=== PATIENT | male | born 1975 | race Hispanic/Latino ===

== ENCOUNTER 2024-09-20 17:28 | Emergency (ER) | payer BC ==
[~2024-09-20] VITALS: Ht 182.9 cm; Wt 112.0 kg
--- NOTE | 2024-09-20 18:12 | HMCIMG ---
LEFT FOOT RADIOGRAPHS - 2 VIEWS INDICATION: [place] injury COMPARISON: None FINDINGS: AP, lateral views. No fracture or subluxation identified. Midfoot alignment is well maintained. No radiopaque foreign body noted. IMPRESSION: No evidence for fracture or foreign body.
[2024-09-20 18:17] VITALS: BP 145/85; PULSE 80; RESP 16; TEMP 98.3; O2SAT 98
[2024-09-20] MEDS ORDERED: CEPH500B PO ×2 (18:32)
--- NOTE | 2024-09-20 18:33 | ERN ---
General Chief Complaint: FOOT INJURY/PAIN Stated Complaint: FISHING HOOK STUCK IN BONE LT FOOT Time Seen by MD: 17:32 Source: patient, family History of Present Illness Initial Comments PATIENT IS A 48-YEAR-OLD MALE COMING IN TO BE EVALUATED FOR LEFT FOOT PATIENT WAS INJURY. PER PATIENT HE WAS FISHING STEPPED ON A HOOK IN HIS NOW STUCK IN HIS LEFT FOOT. Allergies: Coded Allergies: No Known Drug Allergies (Unverified Allergy, Intermediate, 09/20/24) Home Meds Active Scripts Cephalexin Monohydrate (Keflex) 500 Mg Cap, 1 CAP PO BID for 10 Days, #20 CAP 0 Refills Prov:ERICK ACOSTA MD 09/20/24 Cephalexin Monohydrate (Keflex) 500 Mg Cap, 1 CAP PO TID for 10 Days, #30 CAP 0 Refills Prov:ERICK ACOSTA MD 09/20/24 Past Medical History Past Medical History: No Pertinent History Past Surgical History: Other Surgical History Other: ANKLE SX ROS Dictation CONSTITUTIONAL: NO CHILLS, NO FEVER, NO WEAKNESS, NO DIAPHORESIS, NO MALAISE. HEAD/FACE: NO SIGNS OF TRAUMA. EENT: NO EYE PAIN, NO BLURRED VISION, NO TEARING, NO DOUBLE VISION, NO EAR PAIN, NO EAR DISCHARGE, NO NOSE PAIN, NO NASAL CONGESTION, NO THROAT PAIN, NO THROAT SWELLING, NO MOUTH PAIN. RESPIRATORY: NO COUGH, NO ORTHOPNEA, NO SOB, NO STRIDOR, NO WHEEZING. CARDIOVASCULAR: NO CHEST PAIN, NO EDEMA, NO PALPITATIONS, NO SYNCOPE. GASTROINTESTINAL/ABDOMINAL: NO ABDOMINAL PAIN, NO CONSTIPATION, NO DIARRHEA, NO NAUSEA, NO VOMITING. GENITOURINARY: NO ABNORMAL DISCHARGE, NO DYSURIA, NO FREQUENT URINATION, NO HEMATURIA. NO COMPLAINTS OF PAIN IN THE GENITALS. MUSCULOSKELETAL: NO BACK PAIN, NO GOUT, NO JOINT PAIN, NO JOINT SWELLING, NO MUSCLE PAIN, NO MUSCLE STIFFNESS, NO NECK PAIN. INTEGUMENTARY: NO CHANGE IN COLOR, NO CHANGE IN HAIR/NAILS, NO DRYNESS, LESION, NO LUMPS, NO RASH. NEUROLOGICAL/PSYCH: NO ANXIETY, NOT DEPRESSED, NO EMOTIONAL PROBLEM, NO HEADACHE, NO NUMBNESS, NO PRE-EXISTING DEFICIT, NO HISTORY OF SEIZURES, NO TREMORS, NO WEAKNESS. HEMATOLOGIC/LYMPHATIC: NOT ANEMIC, NO HISTORY OF BLOOD CLOTS, NO APPARENT BLEEDING, NO BRUISING, GLANDS NOT SWOLLEN. ALL SYSTEMS NEGATIVE, EXCEPT NOTED. Physical Exam Physical Exam Dictation VITAL SIGNS: REVIEWED. GENERAL APPEARANCE: ALERT, ORIENTED X3, NO ACUTE DISTRESS, OBESE. HEAD AND FACE: NON-TRAUMATIC. EYES: PERRL, PINK CONJUNCTIVAS, EYELID NO TRAUMA, ANTERIOR CHAMBER CLEAR. EARS: PINNAS INTACT AND NO SIGNS OF TRAUMA OR ERYTHEMA. EAR CANALS CLEAR AND NO DISCHARGE. TMS NO ERYTHEMA. NOSE: NO DISCHARGE, NO BLEEDING. OROPHARYNX: MOUTH NORMAL, TEETH NO CARIES, TONGUE PINK. PHARYNX CLEAR, NO ERYTHEMA. TONSILS NO EXUDATES, NO ABSCESSES NOTED. MUCOUS MEMBRANE MOIST. NECK: SUPPLE, NON-TENDER, NO THYROMEGALY, NO MASSES, NO JVD, NO BRUITS. BREAST: DEFERRED. CHEST: NO TENDERNESS, NO CREPITUS, NO PARADOXICAL MOVEMENT, NO RETRACTIONS. LUNGS: CLEAR, WELL-VENTILATED, SYMMETRIC, NO RALES, NO WHEEZING, NO RHONCHI, NO STRIDOR, GOOD BREATH SOUNDS BILATERALLY. HEART: REGULAR RATE, REGULAR RHYTHM, NO MURMUR, NO GALLOPS. VASCULAR: NO PERIPHERAL EDEMA. ABDOMEN: SOFT, POSITIVE BOWEL SOUNDS, NONDISTENDED, NO GUARDING, NONTENDER, NO REBOUND, NO MASSES NO HEPATOMEGALY, NO SPLENOMEGALY, NO RANGEL'S SIGN, NO HERNIAS. RECTAL: DEFERRED. GENITAL: DEFERRED. NEUROLOGICAL: NORMAL SPEECH, GROSS MOTOR FUNCTION INTACT, GROSS SENSORY FUNCTION INTACT. MUSCULOSKELETAL: NECK NONTENDER, FULL RANGE OF MOTION, BACK NONTENDER, FULL RANGE OF MOTION. EXTREMITIES: NONTENDER, FULL RANGE OF MOTION. SKIN: COLOR PINK, DRY, NO TURGOR, NO RASH, LEFT FISH HOOK LYMPHATICS: DEFERRED. Results Laboratory and Microbiology Labs Reviewed?: Yes EKG/XRAY/US/CT/MRI X-RAY Comment IMAGING REPORT Signed PATIENT: OCHOA HOPSON MR#: [id number] : 1975 SEX: M AGE: 48 LOCATION: [facility] ORDER [id number] STATUS: REG ER REPORT#: [id number] SERVICE [id number] REASON: FISH HOOK ORDERING PHYSICIAN: ERICK ACOSTA MD PROCEDURE: FT 2VW LT - FOOT LIMITED 2VWS LT LEFT FOOT RADIOGRAPHS - 2 VIEWS INDICATION: [place] injury COMPARISON: None FINDINGS: AP, lateral views. No fracture or subluxation identified. Midfoot alignment is well maintained. No radiopaque foreign body noted. IMPRESSION: No evidence for fracture or foreign body. DICTATED BY: MYNOR MCDONOUGH MD DATE: 09/20/241808 ELECTRONICALLY SIGNED BY: MYNOR MCDONOUGH MD DATE: 09/20/241811 MDM MDM: DIFFERENTIAL DIAGNOSIS: FOREIGN BODY TO THE FOOT, FISH HOOK, RATIONALE: TESTS CONSIDERED AND ORDERED SECONDARY TO SHARED DECISION MAKING INCLUDE: PREVIOUS OUTSIDE RECORDS REVIEWED: OLD ER VISITS. RISK OF COMPLICATION AND/OR MORBIDITY OR MORTALITY OF PATIENT MANAGEMENT: NONE MEDICATIONS-PER MEDICATION RECONCILIATION PATIENT IS A 48-YEAR-OLD MALE COMING IN WITH A FACIAL STUCK IN HIS LEFT FOOT. FOOT WAS NUMBED WITH LOCAL ANESTHESIA USING LIDOCAINE 1% 5 ML WERE USED GOOD ANESTHESIA ACHIEVED. PATIENT WAS PUSHED THROUGH SKIN LUIS WAS BENT AND GENTLY RETRACTED. PATIENT TOLERATED PROCEDURE WELL WE WILL BE DISCHARGED IN STABLE CONDITION WITH A DIAGNOSIS OF FOREIGN BODY TO THE FOOT. ED Course Orders Procedure Category Date Status Time Lidocaine Hcl 1% 20ml PHA 09/20/24 Complete Vial (Lidocaine Hc 17:38 Tetanus,Diphtheria PHA 09/20/24 Complete Tox [Adult] (Diphther 18:00 Ceftriaxone 1g Vial PHA 09/20/24 Complete (Rocephine 1g Inj) 18:00 Foot Limited 2vws Lt RAD 09/20/24 Resulted 17:38 Ketorolac 60mg/2ml PHA 09/20/24 Complete (Toradol 60mg/2ml) 18:30 Current Medications Medications (Trade) Dose Ordered Sig/Fide Route PRN Reason Start Time Stop Time Status Last Admin Dose Admin Ceftriaxone Sodium (ROCEphine 1G INJ) 1 gm ONCE ONCE IM 09/20/24 18:00 09/20/24 18:24 DC Ketorolac Tromethamine (toRADol 60MG/ 2ML) 60 mg ONCE ONCE IM 09/20/24 18:30 09/20/24 18:31 DC Lidocaine HCl (Lidocaine HCl 1% 20ml Vial) 20 ml ONCE STAT INJ 09/20/24 17:38 09/20/24 18:24 DC Tetanus/ Diphtheria Toxoids Adsorbed (DiphthERIA-teTANUS TOXOID [ADULT]/ DECAVAC) 0.5 ml ONCE ONCE IM 09/20/24 18:00 09/20/24 18:24 DC Vital Signs Date Time Temp Pulse Resp B/P (MAP) Pulse Ox O2 Delivery O2 Flow Rate FiO2 09/20/24 18:17 98.2 80 16 145/85 98 Room Air* 0 21 09/20/24 18:04 97.9 84 18 149/87 98 Room Air Procedure Dictation LEFT FOOT FISH HOOK-AND A STERILE ENVIRONMENT USING LOCAL ANESTHESIA 5 ML WERE INTRODUCED IN THE LEFT FOOT IN THE TRAJECTORY OF THE FISH HOOK. GOOD ANESTHESIA ACHIEVED. GENTLY PUSHING FACIAL FORWARD THROUGH SKIN THEN LUIS WAS BENT. PATIENT WAS THEN GENTLY RETRACTED PATIENT TOLERATED PROCEDURE WELL. INCISION TRACT WAS WASHED AND CLEANED ANTIBIOTICS WERE GIVEN. DX & DISP Disposition: Discharge Departure Impression: Primary Impression: SUPERFICIAL FOREIGN BODY, LEFT FOOT, INITIAL ENCOUNTER Condition: Stable Scripts Cephalexin Monohydrate (Keflex) 500 Mg Cap 1 CAP PO BID for 10 Days, #20 CAP 0 Refills Prov: ERICK ACOSTA MD 09/20/24 Cephalexin Monohydrate (Keflex) 500 Mg Cap 1 CAP PO TID for 10 Days, #30 CAP 0 Refills Prov: ERICK ACOSTA MD 09/20/24 Additional Instructions: FOLLOW-UP WITH PRIMARY CARE PROVIDER IN 1 TO 2 DAYS. TAKE MEDICATIONS DIRECTED HERE IN THE EMERGENCY ROOM. OKAY TO CONTINUE HOME MEDICATIONS UNLESS OTHERWISE DISCUSSED DURING YOUR VISIT IN THE EMERGENCY ROOM TODAY. RETURN TO YOUR NEAREST EMERGENCY ROOM IF SYMPTOMS WORSEN OR IF THERE IS NO IMPROVEMENT. CALL 911 IF YOU NEED IMMEDIATE ASSISTANCE. TAKE TYLENOL [id number] NEEDED AND IF NO CONTRAINDICATIONS ARE PRESENT. INCREASE ORAL HYDRATION. A WOUND CULTURE OR URINE CULTURE WAS ORDERED HERE IN THE EMERGENCY ROOM DEPARTMENT PLEASE FOLLOW-UP WITH PRIMARY CARE PROVIDER AND ADVISE THEM TO GET REPORTS FROM OUR FACILITY. IF YOU HAD ANY MONCHO WRAP/SPLINTS THAT WERE APPLIED HERE, PLEASE DO NOT REMOVE THEM UNTIL YOU SEE YOUR PRIMARY CARE OR SPECIALTY. REFERRALS: Referrals: SELF,REFERRAL (PCP) FAISAL CHONG MD Time of Disposition: 18:31 ERICK ACOSTA MD Sep 20, 2024 18:33
[2024-09-20] MEDS: cefTRIAXone 1G VIAL IM ONE (18:42)
[2024-09-20] MEDS: LIDOCAINE HCL 1% 20 ML VIAL INJ STA (18:42)
[2024-09-20] MEDS: ketOROlac 60 MG VIAL (30MG/ML) IM ONE (18:43)
[2024-09-20] MEDS: teTANUS/diphthERIA TOXOID [ADULT] 0.5 ML VIAL IM ONE (18:45)
== END 2024-09-20 19:06 | disposition home or self-care (01) ==
LOC: EDH 17:28
DX: S90.852A Superficial foreign body, left foot, initial encounter (principal); Z79.899 Other long term (current) drug therapy; W45.8XXA Other foreign body or object entering through skin, initial encounter; Y93.89 Activity, other specified; Y92.89 Other specified places as the place of occurrence of the external cause; Y99.8 Other external cause status
CPT/HCPCS: 99284; 90714; 73620; 96372 ×2; 90471; J1885; J0696